=== PATIENT | male | born 1970 | race Caucasian/White ===

== ENCOUNTER → 2024-01-02 16:52 | Outpatient (REF) | payer BC, SELFPAY | LOC: HWRAD 16:52 | PROVIDERS: ATTENDING PHYSICIAN Chiropractor; FAMILY PHYSICIAN Internal Medicine | DX: M54.6 Pain in thoracic spine (principal); M53.2X7 Spinal instabilities, lumbosacral region; R10.2 Pelvic and perineal pain | CPT/HCPCS: 72072; 72110; 72170 ==